=== PATIENT | female | born 2000 | race Two or more races ===

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

== ENCOUNTER 2024-01-27 21:54 | Emergency (ER) | payer MEDICAID ==
[~2024-01-27] VITALS: Ht 170.2 cm; Wt 101.5 kg
[2024-01-27 22:40] VITALS: BP 118/76; PULSE 80; RESP 18; TEMP 98.3; O2SAT 98
[2024-01-27] MEDS ORDERED: METR0.7511 VG (22:52)
[2024-01-27 23:27] LABS: Urine Amorphous Crystal MANY /hpf (None Seen); Urine Bacteria FEW /hpf (None Seen); Urine Blood 1+ /uL (Negative); Urine Clarity Ex.Turbid (Clear); Urine Mucus FEW (None Seen); Urine Protein, UAD 1+ (Negative); Urine Specific Gravity 1.024 (1.001-1.035); Urine Urobilinogen 2 mg/dL (Negative); Urine WBC 55 /hpf (0 - 5); Urine WBC Clumps PRESENT /hpf (None Seen)
[2024-01-27 23:31] LABS: Urine Color Yellow (Yellow)
[2024-01-27] MEDS ORDERED: BACDST PO (23:39)
[2024-01-27] MEDS: cefTRIAXone SOD 1,000 MG VL IM ONE (23:39)
[2024-01-27] MEDS: KETOROLAC TROMETH 60MG/2ML VIAL IM ONE (23:40)
[2024-01-27] MEDS ORDERED: ACET500T58 PO (23:45)
[2024-01-28] MEDS ORDERED: METR375C PO (16:58)
[2024-01-28] MEDS ORDERED: VALA1TAB PO (16:58)
== END 2024-01-28 00:18 | disposition home or self-care (01) ==
LOC: ER 21:54
DX: N76.0 Acute vaginitis (principal); N39.0 Urinary tract infection, site not specified; B96.89 Other specified bacterial agents as the cause of diseases classified elsewhere; I10 Essential (primary) hypertension; Z76.0 Encounter for issue of repeat prescription; Z32.02 Encounter for pregnancy test, result negative
CPT/HCPCS: 81001; 81025; 96372; 99284; J0696; J1885

== ENCOUNTER 2024-01-28 12:44 | Emergency (ER) | payer MEDICAID ==
[~2024-01-28] VITALS: Ht 172.7 cm; Wt 97.6 kg
[~2024-01-28 12:44] MED LIST: ACET500T58 PO; BACDST PO; METR0.7511 VG
[2024-01-28] MEDS ORDERED: METR375C PO (16:58)
[2024-01-28] MEDS ORDERED: VALA1TAB PO (16:58)
[2024-01-28] MEDS: KETOROLAC TROMETH 30 MG/ML 1ML VIAL IM ONE (18:11)
[2024-01-28 18:17] VITALS: BP 124/55; PULSE 90; RESP 18; O2SAT 98
== END 2024-01-28 18:19 | disposition home or self-care (01) ==
LOC: ER 12:44
DX: N76.0 Acute vaginitis (principal); B96.89 Other specified bacterial agents as the cause of diseases classified elsewhere; B00.9 Herpesviral infection, unspecified; I10 Essential (primary) hypertension; Z79.899 Other long term (current) drug therapy
CPT/HCPCS: 96372; 99283; J1885